=== PATIENT | male | born 1995 | race Two or more races ===

== ENCOUNTER 2021-10-09 14:38 | Emergency (ER) | payer SELFPAY ==
--- NOTE | ~2021-10-09 | XR_ITS ---
EXAMINATION: XR THORACIC SPINE CLINICAL INFORMATION: Mid to right-sided back pain after heavy lifting. COMPARISON: None TECHNIQUE: 3 views of the thoracic spine were obtained. FINDINGS: There is a radiopaque marker overlying the right midlung zone at approximately the level of the T7 vertebral body. There is a 9 x 6 mm centrally lucent structure with a sclerotic border contacting the inferior endplate of presumed T6 vertebral body seen only on the lateral radiograph. There is no fracture or bone destruction seen and the vertebral alignment is normal. There is no disc space narrowing. There is no abnormality of the paraspinal soft tissues. XR/XR thoracic spine 3V IMPRESSION: Possible 9 x 6 mm lucent lesion with a sclerotic border contacting the inferior endplate of presumed T6 vertebral body. Significance is uncertain, could represent a Schmorl's node deformity or other process. Further evaluation with cross-sectional imaging could be considered. No other acute process identified.
--- NOTE | ~2021-10-09 | XR_ITS ---
EXAMINATION: XR RIBS, RIGHT CLINICAL INFORMATION: Posterior rib cage pain after heavy lifting. COMPARISON: 07/19/2017. TECHNIQUE: 3 views of the right ribs were obtained. FINDINGS: Lungs are clear. No consolidation, pneumothorax, or pleural effusion. The cardiomediastinal silhouette and pulmonary vasculature are normal. Osseous structures are unremarkable. Ribs are intact. No fractures are identified. XR/XR ribs RT min 3V w CXR1V IMPRESSION: No acute cardiopulmonary findings. No evidence of acutely displaced rib fractures.
[2021-10-09 15:04] VITALS: BP 128/78; PULSE 85; RESP 17; TEMP 36.4; O2SAT 98; BMI 22.6
[2021-10-09] MEDS: NaPROXEN 500 MG TABLET PO (15:28)
[2021-10-09] MEDS: Cyclobenzaprine HCl 10 MG TABLET PO (15:28)
--- NOTE | 2021-10-09 15:43 | ED_ITS ---
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 Reports that he has been trying [id number] Lidoderm patches what is provide mild symptomatic relief. Reports that he does a lot a heavy lifting and bending at his job and he is unsure if it was a work related injury. He denies any fevers, chills, dizziness, headaches, neck pain/stiffness, trouble swallowing or breathing, chest pain or shortness of breath, dyspnea on exertion, orthopnea, palpitations, paresthesias, nausea/vomiting/diarrhea or constipation, black or bloody stools, hematuria, penile discharge, abdominal pain, radiation of the pain, lower e xtremity edema or calf tenderness, urinary bowel incontinence or retention, saddle anesthesia, IV drug use or any other symptoms complaints or concerns at this time MD elicited complaint: back pain and back injury Onset (ago): day(s) (2) Timing: constant and progressively worsening Severity: moderate Similar Symptoms Previously: No Quality: aching and spasming Location: thoracic spine and right upper back Radiation: none Exacerbating factors: movement, deep breaths and lifting Relieving factors: none Context: while lifting, turning/twisting and bending Associated symptoms: denies other symptoms Treatments prior to arrival: other (Patient has a Lidoderm patch in place with mild symptomatic relief) Related Data Previous Rx's Medication Instructions Recorded cyclobenzaprine 10 mg tablet 10 mg PO Q8H PRN #14 tab 10/09/21 naproxen 500 mg tablet 500 mg PO BID PRN #14 tab 10/09/21 tramadol 50 mg tablet 50 mg PO BID PRN #14 tab 10/09/21 Allergies Allergy/AdvReac Type Severity Reaction Status Date / Time cat dander [CAT] Allergy Unknown ITCHING Unverified 03/02/20 18:26 dog dander [DOG] Allergy Unknown ITCHING Unverified 03/02/20 18:26 acetaminophen [From Tylenol] AdvReac Headache Verified 10/09/21 15:07 Review of Systems Review of Systems: Constitutional : No trauma, No Weight loss, No Fever, No Chills, ENT/Mouth : No Hearing loss, No Ear Pain, No Nasal Congestion, No Sinus Pain, No Hoarseness, No sore throat, No Rhinorrhea, No Swallowing Difficulty Cardiovascular : No Chest Pain, No SOB Respiratory : No Cough, No Dyspnea Gastrointestinal : No Nausea, No Vomiting, No Diarrhea, No abdominal Pain, No Hematochezia, No Melena Genitourinary : No Dysuria, No Urinary Frequency, No Hematuria, No Urinary or Bowel Incontinence/retention Musculoskeletal : + Back pain, No neck pain, No joint stiffness, No joint swelling Skin : No Skin Lesions, No rash or signs of infection Neuro : No Weakness, No radiation, No Numbness, No Paresthesias, No headache, no loss of bowel or bladder incontinence, no saddle anesthesia, Focal weakness, No radiation Denies history of IV drug usage. Yes all other systems are reviewed and are negative [facility] Past Medical History Attestation statement: The following information was validated with the patient. Social History Social History Advance Directives: No Advance Directives Information Provided: No Physical Exam Vital Signs: Vital Signs: Last Vital Signs Temp 97.5 F 10/09/21 17:07 Pulse 50 10/09/21 17:07 Resp 16 10/09/21 17:07 BP 115/55 L 10/09/21 17:07 Pulse Ox 99 10/09/21 17:07 BMI result Body Mass Index 22.6 vital signs have been reviewed as normal and appeared to be correct. Blood pressure normal. Heart rate normal. Respiration rate normal. Temperature normal. Oxygen saturation normal. Appearance: Alert. Oriented X3. No acute distress. Head: Normal external exam. Normocephalic. Atraumatic. Eyes: PERRLA. EOMI. Conjunctiva and sclera normal. Eyelids normal. ENT: EAC normal. TM's Normal. Pharynx normal. Uvula midline. Moist mucous membranes. No trismus noted. No drooling noted. No muffled voice noted. Neck: Normal inspection. Neck supple. FROM. No adenopathy. Thyroid Normal. No meningeal signs. No neck mass noted. CVS: Normal heart rate and rhythm. Heart sound normal. No murmurs noted. Pulses normal throughout. Respiratory: No respiratory distress. Painless inspiration. Breath sounds normal. No wheezes/rales/rhonchi noted. Chest nontender. No accessory muscle usage noted or decreased air movement noted. Abdomen: Soft and nontender. Bowel sounds normal in all 4 quadrants. No distention noted. No organomegaly noted. No visible injury noted. Back: No CVA tenderness. Full range of motion noted. No obvious deformities, or edema. Mild para-spinal muscular tenderness at right thoracic region. No lumbar tenderness. No coccyx tenderness noted. Full ROM in back and lower extremities. 5/5 strength hip extension/flexion, abduction, adduction. Mild Lumbar pain with hip flexion against resistance. Straight leg raise test negative on right; Straight leg raise test negative on left; Reflexes normal ankle and knee bilaterally; EHL motor strength normal bilaterally. No rashes/lesion/induration/fluctuance or signs infection noted. Skin: Skin warm and dry. Normal skin color. Normal skin turgor. No rashes/lesions/lacerations noted. Extremities: Extremities exhibit normal range of motion. Extremities nontender. Neuro: Oriented X 3. No motor deficit. No sensory deficit. Reflexes normal. Patient has a normal steady gait. Course Course Course Narrative: Pt c likely muscular pain, but could be herniated disc. Neuro exam shows no deficits. Not c/w AAA/epidural abscess/dissection.No high risk Hx (Incont, fever, immunosupp, recent surgery/LP, coag, signif trauma, wt loss, puls mass, hx/o Ca, TB, or IVDU) to warrant MRI/CT today. Not c/w Pyelo/UTI/kidney st one/spinal fx. Not cauda equina syndrome. Will obtain x-rays if negative will DC home with symptomatic treatment instructions return if any new or worsening symptoms to follow up with primary care provider. Patient understands agrees with this plan. Reevaluation(s) Reevaluation #1: Ribs and PA chest negative for any acute processes. Thoracic this spine x-ray revealed a possible Schmorl's node deformity. Therefore printed out the results and handed to the patient explained to him that he should have further evaluation treatment especially if his symptoms persist or worsen with the PCP and to return if any new or worsening symptoms will DC home with symptomatic treatment. Patient understands agrees with this plan. Time: 17:19 MDM - Back Pain/Injury Medical Records Attestation: I reviewed the patient's medical records. Imaging Data Thoracic and right ribs with PA chest x-ray: Attestation: I personally reviewed and interpreted this imaging study as follows: Radiologist's impression: FINDINGS: There is a radiopaque marker overlying the right midlung zone at approximately the level of the T7 vertebral body. There is a 9 x 6 mm centrally lucent structure with a sclerotic border contacting the inferior endplate of presumed T6 vertebral body seen only on the lateral radiograph. There is no fracture or bone destruction seen and the vertebral alignment is normal. There is no disc space narrowing. There is no abnormality of the paraspinal soft tissues. XR/XR thoracic spine 3V IMPRESSION: Possible 9 x 6 mm lucent lesion with a sclerotic border contacting the inferior endplate of presumed T6 vertebral body. Significance is uncertain, could represent a Schmorl's node deformity or other process. Further evaluation with cross-sectional imaging could be considered. No other acute process identified. FINDINGS: Lungs are clear. No consolidation, pneumothorax, or pleural effusion. The cardiomediastinal silhouette and pulmonary vasculature are normal. Osseous structures are unremarkable. Ribs are intact. No fractures are identified. XR/XR ribs RT min 3V w CXR1V IMPRESSION: No acute cardiopulmonary findings. ? No evidence of acutely displaced rib fractures. Discharge Plan Discharge Clinical Impression: Thoracic back pain, Schmorl's nodes of the thoracic region Patient Disposition: Home, Self-Care Instructions: Thoracic Pain (ED) Prescriptions: New tramadol 50 mg tablet 50 mg PO BID PRN (Reason: pain) Qty: 14 0RF naproxen 500 mg tablet 500 mg PO BID PRN (Reason: pain) Qty: 14 0RF cyclobenzaprine 10 mg tablet 10 mg PO Q8H PRN (Reason: Muscle spasm) Qty: 14 0RF Referrals: [facility] [Provider Group] [facility] [Provider Group] [facility] [place] [facility] [Provider Group] [facility] [place] [facility] [Provider Group] [facility] [place] [facility] [Provider Group] Stand Alone Forms: Work/School Release
[2021-10-09 17:07] VITALS: BP 115/55; PULSE 50; RESP 16; TEMP 36.4; O2SAT 99
== END 2021-10-09 17:32 | disposition home or self-care (01) ==
PROVIDERS: Emergency Provider Emergency Medicine
DX: M51.44 Schmorl's nodes, thoracic region (principal); M54.6 Pain in thoracic spine; R07.81 Pleurodynia
CPT/HCPCS: 71101; 72072; 99283; 99284